=== PATIENT | female | born 1945 | race Caucasian/White ===

== ENCOUNTER 2019-09-18 09:00 | Outpatient (CLI) | payer MEDICARE, SELFPAY | END 2019-09-18 09:01 | disposition home or self-care (01) | LOC: CHSCARD 09:06 | PROVIDERS: PCP Internal Medicine; Visit Provider Internal Medicine Pulmonary Disease | DX: J44.9 Chronic obstructive pulmonary disease, unspecified (principal); J45.991 Cough variant asthma | CPT/HCPCS: 94060; 94726; 94729; 95012 ==

== ENCOUNTER 2022-08-04 10:51 | Outpatient (CLI) | payer MEDICARE, SELFPAY ==
--- NOTE | ~2022-08-04 | XR_ITS ---
EXAMINATION: XR chest 2V DATE: 08/04/2022 11:37 INDICATION: Cough. Congestion. TECHNIQUE: Frontal and lateral views of the chest were obtained. COMPARISON: Chest 2 views 07/30/2016, chest CT 04/2017 FINDINGS: There is a chronic paramediastinal mass with calcifications at left lung base. A calcified left lung nodule is consistent with old granulomas disc disease. No pleural effusion or pneumothorax. The heart size is normal. IMPRESSION: 1. 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 Reviewed, dictated and finalized at location A. TEACHER IMPRESSION: 1. 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
[2022-08-04 12:13] LABS: RSV RNA, RT-PCR Negative (Negative)
== END 2022-08-04 10:52 | disposition home or self-care (01) ==
PROVIDERS: PCP Internal Medicine; Visit Provider Internal Medicine
DX: R05.9 Cough, unspecified (principal); R91.8 Other nonspecific abnormal finding of lung field
CPT/HCPCS: 71046; 87634

== ENCOUNTER 2023-05-10 12:10 | Outpatient (CLI) | payer MEDICARE, SELFPAY ==
--- NOTE | ~2023-05-10 | XR_ITS ---
Clinical Indication: Shortness of breath PA and lateral views of the chest: Comparison: 08/04/2022 Findings: There is minimal bibasilar hazy airspace disease. There is no central pulmonary venous jovani estive change.. Cardiomediastinal silhouette is within normal limits. Bones and soft tissues are unr emarkable. Impression: Probable central congestive change and minimal bibasilar pulmonary edema. Reviewed, dictated and finalized at location . Impression: Probable central congestive change and minimal bibasilar pulmonary edema.
[2023-05-10 12:29] LABS: Basophils Absolute Auto 0.05 K/mm3 (0.00-0.10); Basophils Percent Auto 0.6 % (0.0-1.0); Eosinophils Absolute Auto 0.14 K/mm3 (0.02-0.50); Eosinophils Percent Auto 1.8 % (1.0-6.0); Hematocrit 37.6 % (35.0-42.0); Hemoglobin 12.1 g/dL (11.7-13.8); Immature Granulocyte Absolute 0.03 K/mm3 (0.00-0.00); Immature Granulocyte Percent A 0.4 % (0.0-0.0); Immature Platelet Fraction Pct 11.4 % (1.0-7.0); Lymphocytes Absolute Auto 1.35 K/mm3 (1.10-4.50); Lymphocytes Percent Auto 17.1 % (18.0-42.0); Mean Corpuscular HGB Conc 32.2 g/dL (32.0-36.0); Mean Corpuscular Hemoglobin 30.3 pg (27.0-31.0); Mean Platelet Volume 13.6 fl (9.2-11.8); Monocytes Absolute Auto 0.51 K/mm3 (0.10-0.90); Monocytes Percent Auto 6.5 % (2.0-11.0); Neutrophils Absolute Auto 5.8 K/mm3 (1.7-7.2); Neutrophils Percent Auto 73.6 % (50.0-70.0); Platelet Count Result 304 K/mm3 (150-420); Red Cell Distribution Width 13.5 % (11.6-14.4); White Blood Count 7.9 K/mm3 (4.8-10.8)
[2023-05-10 12:50] LABS: Alanine Aminotransferase 75 U/L (14-59); Albumin Level 3.4 g/dL (3.4-5.0); Alkaline Phosphatase 85 U/L (46-116); Anion Gap 12 mmol/L (8-16); Aspartate Amino Transferase 44 U/L (15-37); Bilirubin,Total 0.7 mg/dL (0.00-1.00); Blood Urea Nitrogen 15 mg/dL (7-18); Carbon Dioxide 24 mmol/L (21-32); Chloride 105 mmol/L (98-108); Creatine Kinase 106 U/L (26-192); D Dimer 0.81 mg/L (0.19-0.50); Estimated Glomerular Filt Rate > 60; Glucose 126 mg/dL (70-99); Osmolality Calculated 294 mOsm/kg (285-295); Potassium 3.9 mmol/L (3.5-5.1); Sodium 141 mmol/L (136-145); Total Protein 6.7 g/dL (6.4-8.2); Troponin I 13.9 ng/L (0.00-60.4)
[2023-05-11 06:51] LABS: NT Pro B Type Natriuretic Pept 17056 pg/mL (0-450)
== END 2023-05-10 12:11 | disposition home or self-care (01) ==
LOC: CHSLAB 12:13
PROVIDERS: PCP Internal Medicine; Visit Provider Nurse Practitioner Family
DX: J06.9 Acute upper respiratory infection, unspecified (principal); R06.02 Shortness of breath; I50.9 Heart failure, unspecified; I51.7 Cardiomegaly; R91.8 Other nonspecific abnormal finding of lung field
CPT/HCPCS: 36415; 71046; 80053; 82550; 82553; 83880; 84484; 85025; 85055; 85380

== ENCOUNTER 2023-05-10 15:07 | Outpatient (CLI) | payer MEDICARE, SELFPAY ==
--- NOTE | ~2023-05-10 | CT_ITS ---
EXAMINATION: CTA chest PE protocol DATE: 05/10/2023 15:34 INDICATION: Shortness of breath. TECHNIQUE: Computed tomography angiography (CTA) of the chest was performed with 100 mL Omnipaque-350 intravenous contrast timed to evaluate the pulmonary arteries. Coronal maximum intensity projection 3D-reconstructions were created by the technologist. Automated exposure control and iterative reconst ruction technique were employed. The dose-length product was 144.84 mGy-cm. COMPARISON: Chest CT 04/26/17, 07/09/16 FINDINGS: There is mild scarring at the lung apices. There is mild atelectasis bilaterally. There is mild bronchiectasis in left lower lobe. There are small pleural effusions. There is a 2.1 cm nodule i n left thyroid lobe, stable from 04/26/17, likely benign. Cardiomegaly is noted. No pericardial effusi on. There is no pulmonary embolus. There is a 5.4 x 4.0 cm mass with calcifications in left posterior mediastinum, increased from 4.2 x 2.8 cm on 04/26/17. Calcifications in the spleen are consistent wit h old granulomatous disease. There is thickening of the adrenal glands, likely benign. Again seen are peripelvic cysts in left kidney. There is kyphosis and mild spondylosis of thoracic spine. There is a chronic compression fracture of T5. IMPRESSION: 1. No pulmonary embolus. 2. Small pleural effusions. 3. 5.4 x 4.0 cm mass with calcifications in left posterior mediastinum, increased from 4.2 x 2.8 cm o n 04/26/2017. The differential diagnosis includes peripheral nerve sheath tumor, neurogenic tumor, and fibrous tumor of the pleura. 4. Cardiomegaly. Reviewed, dictated and finalized at location E. IMPRESSION: 1. No pulmonary embolus. 2. Small pleural effusions. 3. 5.4 x 4.0 cm mass with calcifications in left posterior mediastinum, increas ed from 4.2 x 2.8 cm on 04/26/2017. The differential diagnosis includes peripher al nerve sheath tumor, neurogenic tumor, and fibrous tumor of the pleura. 4. Cardiomegaly.
== END 2023-05-10 15:08 | disposition home or self-care (01) ==
PROVIDERS: PCP Internal Medicine; Visit Provider Nurse Practitioner Family
DX: R06.02 Shortness of breath (principal); R79.89 Other specified abnormal findings of blood chemistry; J90 Pleural effusion, not elsewhere classified; I51.7 Cardiomegaly
CPT/HCPCS: 71275; Q9967

== ENCOUNTER 2023-05-13 12:10 | Emergency (ER) | payer MEDICARE, SELFPAY ==
--- NOTE | ~2023-05-13 | XR_ITS ---
EXAMINATION: XR chest 2V DATE: 05/13/2023 16:46 INDICATION: Shortness of breath TECHNIQUE: PA and lateral views of the chest were obtained. COMPARISON: Chest radiograph dated 05/10/2023 FINDINGS: Again seen are small bilateral pleural effusions. Additional bibasilar opacities and favor atelectasi s over pneumonia. No pneumothorax. Calcified nodule at the left lower lung zone consistent with old g ranulomatous disease. Cardiomegaly. Persistent high attenuation material within a moderate-sized hiat al hernia. Mild lumbar levocurvature with compensatory thoracolumbar dextrocurvature. IMPRESSION: 1. Persistent small bilateral pleural effusions with associated basilar atelectasis and/or pneumonia. 2. Cardiomegaly. 3. Moderate-sized hiatal hernia. Reviewed, dictated and finalized at location A. IMPRESSION: 1. Persistent small bilateral pleural effusions with associated basilar atelect asis and/or pneumonia. 2. Cardiomegaly. 3. Moderate-sized hiatal hernia.
[2023-05-13 13:01] VITALS: BP 124/77; PULSE 110; RESP 18; TEMP 36.1; O2SAT 100
[2023-05-13 14:15] LABS: Alanine Aminotransferase 50 U/L (6-35); Albumin Level 3.8 g/dL (3.5-5.1); Alkaline Phosphatase 68 U/L (38-126); Anion Gap 8 mmol/L (8-16); Aspartate Amino Transferase 40 U/L (14-36); Bilirubin,Total 0.9 mg/dL (0.2-1.3); Blood Urea Nitrogen 12 mg/dL (7-17); Calcium 8.7 mg/dL (8.4-10.2); Carbon Dioxide 23 mmol/L (22-30); Chloride 106 mmol/L (98-107); Estimated CRCL calculation 58 ml/min; Estimated Glomerular Filt Rate > 60; Glucose 112 mg/dL (65-110); Sodium 137 mmol/L (137-145)
[2023-05-13 14:16] LABS: Basophils Absolute Auto 0.1 K/mm3 (0.0-0.1); Basophils Percent Auto 0.8 % (0.2-1.2); Eosinophils Absolute Auto 0.1 K/mm3 (0-0.3); Eosinophils Percent Auto 0.8 % (0-4.4); Hematocrit 35.2 % (37.0-47.0); Hemoglobin 11.1 g/dL (12.0-15.0); Immature Granulocyte Absolute 0.02 K/mm3 (0.00-0.031); Immature Granulocyte Percent A 0.3 % (0-0.5); Immature Platelet Fraction Pct 12.5 % (0.9-11.2); Lymphocytes Absolute Auto 0.99 K/mm3 (0.9-3.2); Lymphocytes Percent Auto 13.8 % (18.3-44.2); Mean Corpuscular HGB Conc 31.5 g/dl (32-36); Mean Corpuscular Hemoglobin 30.3 pg (26-34); Mean Corpuscular Volume 96.2 fl (80-100); Mean Platelet Volume 13.3 fl (7.4-10.4); Monocytes Absolute Auto 0.5 K/mm3 (0.1-0.6); Monocytes Percent Auto 6.4 % (2.6-8.5); Neutrophils Absolute Auto 5.6 K/mm3 (1.3-6.7); Neutrophils Percent Auto 77.9 % (45.5-73.1); Platelet Count Result 270 k/mm3 (150-375); Red Blood Count 3.66 M/mm3 (4.2-5.4); White Blood Count 7.2 K/mm3 (4.5-10.0)
[2023-05-13 14:42] LABS: D Dimer 0.65 ug/mL (<0.48)
[2023-05-13 15:52] VITALS: BP 128/80; PULSE 107; RESP 18; TEMP 36; O2SAT 99
[2023-05-13 16:10] LABS: NT Pro B Type Natriuretic Pept 17300 pg/mL (19.9-100)
[2023-05-13 18:08] VITALS: BP 123/71; PULSE 111; RESP 24; O2SAT 100
--- NOTE | 2023-05-13 18:17 | ED.GENADULT ---
HPI - General Adult General Chief complaint: Recheck/Abnormal Lab/Rx Stated complaint: High BNP Time Seen by Provider: 05/13/23 16:18 History of Present Illness HPI narrative: Patient is a 78-year-old female who presents ER due to outpatient labs that were abnormal. Specifically her BNP and D-dimer. Patient had an outpatient CT scan to rule out PE a couple days ago. Patient did have pleural effusions that were small. Patient denies any chest pain or chest pressure. Denies exertional shortness of breath. Reports she cannot go on a day long hike but she can walk around her home and local grocery stores without issue. Denies orthopnea. No leg edema. Reports she had a stress test by Dr. Beard that was unremarkable last year and has had no issues since then. Related Data Allergies Allergy/AdvReac Type Severity Reaction Status Date / Time No Known Allergies Allergy Verified 05/13/23 16:07 Review of Systems Review of Systems: All systems reviewed & are unremarkable except as noted in HPI and below Constitutional: Constitutional: Denies chills, Denies fatigue and Denies fever(s) ENT: Denies nasal congestion and Denies sore throat Cardiovascular: Cardiovascular: Denies chest pain, Denies rapid heart rate and Denies radiating jaw, neck or arm pain Respiratory: Respiratory: Denies cough, Reports dyspnea and Denies wheezing Gastrointestinal: Gastrointestinal: Denies abdominal pain, Denies nausea and Denies vomiting PMFSH Past Medical History Medical History (Updated 05/13/23 @ 18:23 by Last Page MD) Healthy female adult Surgical History Surgical History (Updated 05/13/23 @ 18:23 by Last Page MD) No pertinent past surgical history Exam Narrative: GENERAL: Well-appearing, well-nourished, and in no acute distress. HEAD: Normocephalic, atraumatic. EYES: PERRL and EOMI. ENT: Mucous membranes moist. CHEST: Clear to auscultation. No respiratory distress. HEART: Tachycardic and regular normal peripheral pulses. ABDOMEN: Soft, nontender, nondistended. EXTREMITIES: Normal range of motion. No edema. SKIN: Warm, dry, no rash. NEURO: Alert and oriented x3. PSYCH: Normal mood and affect. Course Course Emergency Course: Patient resting comfortably. Discussed case with cardiology on-call. Feel patient would benefit from outpatient work-up as she is reporting she is essentially asymptomatic. Will place patient on small amount of diuretic. Attempted to contact PCP but office not available. Vital Signs Vital signs: Vital Signs Temperature 97.0 F L 05/13/23 13:01 Pulse Rate 110 H 05/13/23 13:01 Respiratory Rate 18 05/13/23 13:01 Blood Pressure 124/77 05/13/23 13:01 Pulse Oximetry 100 05/13/23 13:01 Oxygen Delivery Room Air 05/13/23 13:01 Temperature 96.8 F L 05/13/23 15:52 Pulse Rate 102 H 05/13/23 18:27 Respiratory Rate 18 05/13/23 18:27 Blood Pressure 123/71 05/13/23 18:27 Pulse Oximetry 98 05/13/23 18:27 Oxygen Delivery Room Air 05/13/23 13:01 Medical Decision Making Vital Signs Vital Signs: Vital Signs Temperature 97.0 F L 05/13/23 13:01 Pulse Rate 110 H 05/13/23 13:01 Respiratory Rate 18 05/13/23 13:01 Blood Pressure 124/77 05/13/23 13:01 Pulse Oximetry 100 05/13/23 13:01 Oxygen Delivery Room Air 05/13/23 13:01 Temperature 96.8 F L 05/13/23 15:52 Pulse Rate 102 H 05/13/23 18:27 Respiratory Rate 18 05/13/23 18:27 Blood Pressure 123/71 05/13/23 18:27 Pulse Oximetry 98 05/13/23 18:27 Oxygen Delivery Room Air 05/13/23 13:01 Lab Data 05/13/23 13:52 05/13/23 13:52 Labs: Lab Results 05/13/23 Range/Units 13:52 WBC 7.2 (4.5-10.0) K/mm3 RBC 3.66 L (4.2-5.4) M/mm3 Hgb 11.1 L (12.0-15.0) g/dL Hct 35.2 L (37.0-47.0) % MCV 96.2 (80-100) fl MCH 30.3 (26-34) pg MCHC 31.5 L (32-36) g/dl RDW 14.0 (11.5-14.5) % Plt Count 270 (150-37
[2023-05-13 18:27] VITALS: BP 123/71; PULSE 102; RESP 18; O2SAT 98
--- NOTE | 2023-05-13 18:29 | ECG_ITS ---
Measurements Intervals [place] Rate: 112 P: 36 MN: 166 QRS: -24 QRSD: 88 T: 153 QT: 335 QTc: 459 Interpretive Statements SINUS TACHYCARDIA POSSIBLE LEFT ATRIAL ENLARGEMENT [-0.1mV P WAVE IN V1/V2] BORDERLINE LEFT AXIS DEVIATION [QRS AXIS < -20] NONSPECIFIC ST & T-WAVE ABNORMALITY NO PREVIOUS ECG AVAILABLE FOR COMPARISON Electronically Signed On 05-14-2023 7:45:53 CDT by Linda Crow MD
== END 2023-05-13 18:43 | disposition home or self-care (01) ==
PROVIDERS: Emergency Provider Emergency Medicine; PCP Internal Medicine
DX: I50.9 Heart failure, unspecified (principal); I51.7 Cardiomegaly; K44.9 Diaphragmatic hernia without obstruction or gangrene; R91.8 Other nonspecific abnormal finding of lung field
CPT/HCPCS: 36415; 71046; 80053; 83880; 85025; 85055; 85380; 93005; 99283